=== PATIENT | female | born 1950 | race Caucasian/White ===

== ENCOUNTER 2020-02-10 13:45 | Emergency (ER) | payer MEDICARE, SELFPAY ==
[2020-02-10 13:58] VITALS: BP 160/88; PULSE 83; RESP 16; TEMP 36.7; O2SAT 98
--- NOTE | 2020-02-10 14:09 | ED.GENADULT ---
HPI - General Adult General Chief complaint: Extremity Injury, Upper Stated complaint: Fall Right arm injury Time Seen by Provider: 02/10/20 14:09 Source: patient and RN notes reviewed Mode of arrival: ambulatory Limitations: no limitations History of Present Illness HPI narrative: 69-year-old female present with complains of 10-15 feet fall with pain to back of head, neck, RT shoulder, arm, and wrist, bruising, and open areas with blood drainage, 30 minutes prior to arrival [facility]. 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 She fell down concrete strep (3 feet apart 9-10 steps and then another 3 feet hitting the back of her head. Unsure of loss consciousness but can not recall the entire event. Cyn does says her spouse denies her losing consciousness. Numerous bruising and abrasions. No deformity. Exacerbating factors consist of palpation and movement of areas. Relieving factor consist of resting. Denies fever or chills. No chest pain, wheezing, or shortness of breath. Denies abdominal pain, nausea, and vomiting. Remains active. The patient reports she have not been diagnosed with COVID-19. The patient reports she is not waiting for the results of a COVID-19 lab test. The patient reports she do not have fever, chills, weakness, fatigue, or facial swelling. The patient reports she do not have a new or worsening cough. The patient reports she do not have any rhinorrhea, congestion, loss of taste, sore throat, nausea, vomiting, abdominal pain, and diarrhea. Tolerating po intake well. Denies recent traveling. Denies concerns for COVID-19 or exposures been home with limited outdoor exposure except for essential household needs and return home. At this time, patient is not suspected of having COVID-19. Related Data Home Medications Medication Instructions Recorded Confirmed alprazolam 02/10/20 amitriptyline 02/10/20 atorvastatin 02/10/20 budesonide-formoterol [Symbicort] INHALATION 02/10/20 bupropion HCl PO 02/10/20 ezetimibe mg 02/10/20 fluticasone propionate INTRANASAL 02/10/20 omeprazole 02/10/20 sertraline mg 02/10/20 Allergies Allergy/AdvReac Type Severity Reaction Status Date / Time ibuprofen AdvReac Gastrointestinal Verified 02/10/20 18:36 Upset Review of Systems Review of Systems: Narrative: CONSTITUTIONAL: Denies fever, chills, sweats. EYES: Denies visual changes, redness, discharge. ENT: Denies rhinorrhea, congestion, sore throat, otalgia. CARDIOVASCULAR: Denies chest pain, palpitations, edema. RESPIRATORY: Denies dyspnea, wheezing, cough. GASTROINTESTINAL: Denies abdominal pain, nausea, vomiting, diarrhea. GENITOURINARY: Denies dysuria, hematuria, abnormal discharge. SKIN: Denies rash or itching. Complains of bruising and open areas with blood drainage. MUSCULOSKELETAL: Denies acute back pain or myalgia. Complains of fall with pain to back of head, neck, RT shoulder, arm, and wrist. NEUROLOGIC: Denies numbness or focal weakness. PSYCHIATRIC: Denies anxiety or depression. All other systems reviewed are negative, except as documented in HPI and below. [facility] Past Medical History Medical History (Updated 02/11/20 @ 10:28 by ANEESH Caal) Anxiety Brain tumor RT side Fungal infection of lung RT lung History of gastroesophageal reflux (GERD) Hypercholesteremia Surgical History Surgical History (Updated 02/10/20 @ 15:14 by ANEESH Caal) History of brain surgery History of hysterectomy History of tonsillectomy Family History Family History (Updated 02/10/20 @ 15:15 by ANEESH Caal) Father , at age 94 Leukemia Mother Acute myocardial infarction Social History Social History (Updated 02/10/20 @ 15:16 by ANEESH Caal) Smoking status: Former smoker Tobacco type: cigarettes Se
[2020-02-10] MEDS: TETANUS,DIPHTHERIA,AC PERTUSSIS ADULT (0.5 ML) BOOSTRIX IM (14:35)
== END 2020-02-10 14:38 | disposition short-term general hospital (02) ==
LOC: EXPCOLL 13:51
PROVIDERS: Emergency Provider Nurse Practitioner Family; PCP Internal Medicine
DX: S40.211A Abrasion of right shoulder, initial encounter (principal); S09.90XA Unspecified injury of head, initial encounter; Z23 Encounter for immunization; W10.9XXA Fall (on) (from) unspecified stairs and steps, initial encounter; Z87.891 Personal history of nicotine dependence
CPT/HCPCS: 90471; 90715; 99212; G0463

== ENCOUNTER 2020-02-10 15:01 | Emergency (ER) | payer MEDICARE, SELFPAY ==
--- NOTE | ~2020-02-10 | XR_ITS ---
EXAMINATION: XR shoulder RT min 2V EXAM DATE: 02/10/2020 16:48 INDICATION: Initial encounter following injury, with pain of the right shoulder. TECHNIQUE: The following right shoulder projections obtained: frontal projection with internal rotati on, frontal projection with external rotation, Grashey, and scapular Y view (4+ views). There is no prior study for comparison. FINDINGS: No evidence of right shoulder rotator cuff calcific tendinosis. There is mild glenohumera l and acromioclavicular joint primary osteoarthritis. There are no acute fractures or dislocations id entified. There is no subcutaneous gas. The soft tissue is unremarkable. There are no radiopaque foreign bodies. IMPRESSION: No acute osseous findings. Reviewed, dictated and finalized at location . IMPRESSION: No acute osseous findings.
--- NOTE | ~2020-02-10 | CT_ITS ---
EXAMINATION: CT brain wo con, CT cervical spine wo con EXAM DATE: 02/10/2020 16:34 INDICATION: Fall. Head and neck pain. TECHNIQUE: Spiral CT of the head was performed without contrast. Axial, coronal and sagittal images were reviewed. Spiral CT of the cervical spine was performed without contrast. Axial images were rev iewed. Coronal and sagittal reformatted images were also reviewed. The dose-length product (DLP) fo r this examination was 529.67 (accession [id number]), 167.00 (accession [id number]) mGy-cm. The exposure was tailored according to patient size, and iterative reconstruction (ASIR) was used as additional dose reduction technique. There is no prior study for comparison. FINDINGS: HEAD CT: There is been prior frontal craniotomy. Small amount of underlying left frontal encephalomal acia. There is no acute intraparenchymal hemorrhage. No evidence of intraparenchymal brain mass lesi on. No evidence of acute infarction. There is mild periventricular and subcortical hypodensity, nons pecific but probably related to small vessel ischemic disease. There is mild prominence of the sulc i and ventricles related to cerebral atrophy. There is intracranial carotid arteriosclerosis. The re is no mass effect or midline shift. There is no obstructive hydrocephalus suspected. There are no extra-axial collections. There are no acute calvarial fractures. The orbits are unremarkable. Sof t tissue is unremarkable. The visualized sinuses and mastoid air cells are well aerated. CERVICAL CT: There is no evidence of acute cervical fracture. The odontoid process is intact. Pre-d ens space is normal. Prevertebral soft tissue is normal. There are no soft tissue abnormalities argelia ntified. There is no disc space widening or traumatic vertebral body subluxation suspected. Mild lo ss of the C5-6 disc height. Atrophic calcified parotid glands bilaterally. Apical scarring. A detail ed level by level evaluation of spondylosis can be added as addendum if requested. IMPRESSION: 1. No acute intracranial findings or cervical fracture. 2. Prior frontal craniotomy, small underlying left frontal encephalomalacia. 3. Chronic findings. Reviewed, dictated and finalized at location G. IMPRESSION: 1. No acute intracranial findings or cervical fracture. 2. Prior frontal craniotomy, small underlying left frontal encephalomalacia. 3. Chronic findings.
[2020-02-10 15:58] VITALS: BP 154/89; PULSE 72; RESP 18; TEMP 36.3; O2SAT 97
--- NOTE | 2020-02-10 20:14 | ED.FALL ---
HPI - Fall General Chief Complaint: Fall Stated Complaint: fall Time Seen by Provider: 02/10/20 18:05 Source: patient Mode of arrival: ambulatory Limitations: no limitations History of Present Illness HPI Narrative: This is a 69 year old female that presents to the ER for a fall today. Reports she was in her garden and leaned forward. Reports she tripped and fell. Reports falling down about 5 steps. Reports she did hit her head. Denies loss of consciousness. Reports since she has had a headache, neck pain and right shoulder pain. Also reports an abrasion to the right forearm. Denies prodromal symptoms, chest pain, shortness of breath, vision changes, vomiting, numbness or weakness. Related Data Home Medications Medication Instructions Recorded Confirmed alprazolam 02/10/20 amitriptyline 02/10/20 atorvastatin 02/10/20 budesonide-formoterol [Symbicort] INHALATION 02/10/20 bupropion HCl PO 02/10/20 ezetimibe mg 02/10/20 fluticasone propionate INTRANASAL 02/10/20 omeprazole 02/10/20 sertraline mg 02/10/20 Allergies Allergy/AdvReac Type Severity Reaction Status Date / Time ibuprofen AdvReac Gastrointestinal Verified 02/10/20 18:36 Upset Review of Systems Review of Systems: Narrative: CONSTITUTIONAL: Denies fever EYES: Denies visual changes CARDIOVASCULAR: Denies chest pain RESPIRATORY: Denies dyspnea. GASTROINTESTINAL: Denies vomiting MUSCULOSKELETAL: Reports joint pain, and myalgia. NEUROLOGIC: Denies numbness, or weakness. All systems reviewed & are unremarkable except as noted in HPI and below PMFSH Past Medical History Medical History (Updated 02/10/20 @ 20:24 by Ester Eason PA-C) Anxiety Brain tumor RT side Fungal infection of lung RT lung History of gastroesophageal reflux (GERD) Hypercholesteremia Surgical History Surgical History (Updated 02/10/20 @ 15:14 by ANEESH Caal) History of brain surgery History of hysterectomy History of tonsillectomy Family History Family History (Updated 02/10/20 @ 15:15 by ANEESH Caal) Father , at age 94 Leukemia Mother Acute myocardial infarction Social History Social History (Updated 02/10/20 @ 15:16 by Tatonya M. Rothman, [employer]) Smoking status: Former smoker Tobacco type: cigarettes Second hand tobacco smoke exposure: No Alcohol intake: current Substance use: never Living arrangements: with family Occupation/Education: retired Gender identity (if verbalized by the patient): Female Sexual Orientation (if Verbalized by the Patient): Straight or Heterosexual Exam Narrative: Exam Narrative: GENERAL: Well-appearing, well-nourished, and in no acute distress. HEAD: Normocephalic, atraumatic. EYES: PERRLA and EOMI. ENT: Nares clear, no rhinorrhea or epistaxis. Mucous membranes moist. Oropharynx without tonsillar hypertrophy exudate or other lesions. Bilateral TMs pearly kiran non-bulging NECK: Supple. No adenopathy or masses. Tender to palpation of midline cervical spine CHEST: Clear to auscultation. No respiratory distress. No wheezes rales or rhonchi HEART: Regular rate and rhythm. No murmur heard. Normal peripheral pulses. BACK: No midline thoracic or lumbar spine tenderness EXTREMITIES: Normal range of motion. No edema. Strength equal in bilateral upper extremities (5/5) SKIN: Warm, dry, no rash. Large skin tear to the right forearm NEURO: No focal deficits. Alert and oriented x3. Cranial nerves II through XII grossly intact PSYCH: Normal mood and affect Course Vital Signs Vital signs: Vital Signs Temperature 97.3 F L 02/10/20 15:58 Pulse Rate 72 02/10/20 15:58 Respiratory Rate 18 02/10/20 15:58 Blood Pressure 154/89 H 02/10/20 15:58 Pulse Oximetry 97 02/10/20 15:58 Temperature 97.3 F L 02/10/20 15:58 Pulse Rate 72 02/10/20 15:58 Respiratory Rate 18 02/10/20 15:58 Blood Pressure 154/89 H 02/10/20 15:58 Pulse Oximetry 97
[2020-02-10 20:50] VITALS: BP 132/88; PULSE 82; RESP 16; O2SAT 98
== END 2020-02-10 20:51 | disposition home or self-care (01) ==
PROVIDERS: Emergency Provider Emergency Medicine; PCP Internal Medicine
DX: S09.90XA Unspecified injury of head, initial encounter (principal); M54.2 Cervicalgia; S50.811A Abrasion of right forearm, initial encounter; Z87.891 Personal history of nicotine dependence; F41.9 Anxiety disorder, unspecified; K21.9 Gastro-esophageal reflux disease without esophagitis; E78.00 Pure hypercholesterolemia, unspecified; W10.9XXA Fall (on) (from) unspecified stairs and steps, initial encounter
CPT/HCPCS: 70450; 72125; 73030; 90471; 90715; 99284